=== PATIENT | female | born 1950 | race Caucasian/White ===

== ENCOUNTER 2020-10-01 21:58 | Emergency (ER) | payer MEDICARE, MEDICAID, SELFPAY ==
[~2020-10-01] VITALS: Ht 172.7 cm; Wt 113.4 kg
[2020-10-01 22:00] VITALS: BP_SYST 148
--- NOTE | 2020-10-01 22:00 | NUR ---
Patient resting on ambulance gurney with EMS at bedside.
--- NOTE | 2020-10-01 22:05 | NUR ---
Patient ELTON from [facility] for positive test result of COVID. Pt denies pain, N/V, SOB. Called facility and asked if patient was desatting or in respiratory distress, per nurse, "No desaturation of Oxygen and not in respiratory distress. She's there for COVID." No other injuries/complaints per patient or noted.
--- NOTE | 2020-10-01 22:10 | NUR ---
ANJANA De La O at examining patient.
--- NOTE | 2020-10-02 | NUR ---
patient resting comfortably on ambulance gurney, no acute distress. EMS at side.
[2020-10-02 01:30] VITALS: BP_SYST 133
--- NOTE | 2020-10-02 01:30 | NUR ---
Patient given written and verbal discharge instructions and verbalizes understanding. ER MD discussed with patient the results and treatment provided. Patient in stable condition. ID arm band removed. No Rx given. Patient educated on pain management and to follow up with PMD. Pain Scale 0. Opportunity for questions provided and answered. Medication side effect fact sheet provided. Report given to MONIQUE Davis, from [facility]. All care endorsed.
== END 2020-10-02 01:30 | disposition home or self-care (01) ==
LOC: SED 21:58
DX: U07.1 COVID-19 (principal)
CPT/HCPCS: 36415; 71045; 99284